=== PATIENT | male | born 1965 | race Two or more races ===

== ENCOUNTER 2021-06-10 17:59 | Emergency (ER) | payer MEDICAID ==
[~2021-06-10] VITALS: Ht 175.3 cm; Wt 72.7 kg
[2021-06-10 18:03] VITALS: BP 110/72
[2021-06-10 19:00] LABS: COVID AG,FIA SOURCE NASOPHARYNGEAL
== END 2021-06-10 18:53 | disposition home or self-care (01) ==
LOC: EMS 18:02
DX: R50.9 Fever, unspecified (principal); M79.10 Myalgia, unspecified site; R07.9 Chest pain, unspecified; Z20.822 Contact with and (suspected) exposure to COVID-19
CPT/HCPCS: 87426; 99283; C9803; U0003

== ENCOUNTER 2022-05-01 09:01 | Emergency (ER) | payer MEDICAID, OTHER ==
[~2022-05-01] VITALS: Ht 175.3 cm; Wt 79.0 kg
[2022-05-01] MEDS ORDERED: KETOROLAC TROMETHAMINE 30 MG/ML VIAL IM ONE (12:00)
[2022-05-01 14:31] LABS: APPEARANCE,URINE CLEAR (CLEAR); BILIRUBIN,URINE NEGATIVE (NEGATIVE); GLUCOSE, URINE (UA) NEGATIVE (NEGATIVE); KETONES,URINE NEGATIVE (NEGATIVE); LEUKOCYTE ESTERASE ,URINE NEGATIVE (NEGATIVE); NITRATE,URINE NEGATIVE (NEGATIVE); OCCULT BLOOD,URINE NEGATIVE (NEGATIVE); SPECIFIC GRAVITIY, URINE 1.021 (1.003-1.030); UROBILINOGEN,URINE <=1.0 mg/dL (<=1.0)
[2022-05-01 14:34] LABS: BACTERIA,URINE None Seen /HPF (None Seen); PROTEIN,URINE NEGATIVE (NEGATIVE); RBC,URINE None Seen /HPF (0-2); WBC,URINE None Seen /HPF (0-5)
[2022-05-01] MEDS ORDERED: LEVO-72 PO (15:24)
[2022-05-01] MEDS ORDERED: IBUP-2070 PO (15:24)
[2022-05-01] MEDS ORDERED: LIDOCAINE/PF 1% 2 ML VIAL IM ONE (15:30)
[2022-05-01] MEDS ORDERED: CefTRIAXone SODIUM 1 GM/VIAL IM ONE (15:30)
[2022-05-01 15:35] VITALS: BP 132/82
== END 2022-05-01 16:00 | disposition home or self-care (01) ==
LOC: EMS 09:03
DX: N45.1 Epididymitis (principal); Z87.438 Personal history of other diseases of male genital organs
CPT/HCPCS: 99284; 81001; 76870; 96372; J0696; J1885; J3490

== ENCOUNTER 2022-11-27 17:02 | Emergency (ER) | payer OTHER ==
[~2022-11-27] VITALS: Ht 170.2 cm; Wt 72.7 kg
[~2022-11-27 17:02] MED LIST: IBUP-2070 PO; LEVO-72 PO
[2022-11-27 17:05] VITALS: BP 119/78
== END 2022-11-27 18:00 | disposition left against medical advice (07) ==
LOC: EMS 17:14
DX: Z53.21 Procedure and treatment not carried out due to patient leaving prior to being seen by health care provider (principal)

== ENCOUNTER 2023-04-04 11:39 | Emergency (ER) | payer OTHER ==
[~2023-04-04] VITALS: Ht 175.3 cm; Wt 81.8 kg
[2023-04-04 11:44] VITALS: TEMP 97.7
[2023-04-04 12:23] LABS: BASOPHILS % (AUTO) 1.1 % (0.0-2.0); EOSINOPHILS % (AUTO) 2.7 % (1.0-6.0); HEMATOCRIT 49.4 % (41-53); HEMOGLOBIN 16.9 g/dL (13.5-17.5); LYMPHOCYTES # (AUTO) 1.7 K/uL (1.0-4.8); LYMPHOCYTES % (AUTO) 19.3 % (22.0-44.0); MEAN CORPUSCULAR HGB CONC 34.2 G/dL (31.0-37.0); MEAN CORPUSCULAR VOLUME 94 fL (80-100); MONOCYTES # (AUTO) 0.7 K/uL (0.1-1.0); MONOCYTES % (AUTO) 8.1 % (2.0-9.0); NEUTROPHILS # (AUTO) 6.1 K/uL (1.8-7.7); NEUTROPHILS % (AUTO) 68.8 % (40.0-70.0); PLATELET COUNT (AUTO) 239 K/uL (150-450); RED BLOOD CELL COUNT(AUTO) 5.28 MIL/uL (4.50-5.90); RED CELL DISTRIBUTION WIDTH 13.2 % (11.5-14.5)
[2023-04-04 12:33] LABS: ANION GAP 3 mmol/L (8-16); CALCIUM, TOTAL 9.1 mg/dL (8.8-10.5); CARBON DIOXIDE 32 mmol/L (22-29); CHLORIDE 106 mmol/L (98-107); CREATININE 1.14 mg/dL (0.60-1.30); GLOMERULAR FILTR. RATE CALC > 60 mL/min (>60); GLUCOSE,RANDOM 110 mg/dL (70-110); POTASSIUM 4.7 mmol/L (3.5-5.1); SODIUM SERUM 141 mmol/L (136-145)
[2023-04-04 12:44] LABS: B-TYPE NATRIURETIC PEPTIDE < 5 pg/mL (0-100)
[2023-04-04 13:01] LABS: ALANINE AMINOTRANSFERASE 21 U/L (12-78); ALBUMIN 3.4 g/dL (3.4-5.0); ALKALINE PHOSPHATASE 88 U/L (46-116); ASPARTATE AMINOTRANSFERASE 17 U/L (15-37); BILIRUBIN,TOTAL 0.7 mg/dL (0.1-1.0); CREATINE KINASE, TOTAL ONLY 92 U/L (39-308); TOTAL PROTEIN, SERUM 6.9 g/dL (6.4-8.2)
[2023-04-04 13:15] VITALS: BP 119/68; PULSE 65; RESP 18
== END 2023-04-04 14:08 | disposition home or self-care (01) ==
LOC: EMS 11:41
DX: R42 Dizziness and giddiness (principal); F15.90 Other stimulant use, unspecified, uncomplicated
CPT/HCPCS: 80053; 82550; 83880; 84484; 85025; 93005; 99284

== ENCOUNTER 2023-09-21 10:24 | Emergency (ER) | payer SELFPAY ==
[~2023-09-21] VITALS: Ht 175.3 cm; Wt 74.5 kg
[2023-09-21 10:53] VITALS: BP 107/70; PULSE 94; RESP 18
== END 2023-09-21 12:28 | disposition left against medical advice (07) ==
LOC: EMS 10:27
DX: N50.82 Scrotal pain (principal); F15.90 Other stimulant use, unspecified, uncomplicated
CPT/HCPCS: 99281; Z7502

== ENCOUNTER 2024-01-25 09:33 | Emergency (ER) | payer SELFPAY ==
[~2024-01-25] VITALS: Ht 175.3 cm; Wt 80.9 kg
[2024-01-25 09:36] VITALS: TEMP 98.1
[2024-01-25 10:28] LABS: BASOPHILS % (AUTO) 0.6 % (0.0-2.0); EOSINOPHILS % (AUTO) 1.9 % (1.0-6.0); HEMATOCRIT 53.2 % (41-53); HEMOGLOBIN 17.8 g/dL (13.5-17.5); LYMPHOCYTES # (AUTO) 2.1 K/uL (1.0-4.8); LYMPHOCYTES % (AUTO) 20.3 % (22.0-44.0); MEAN CORPUSCULAR HEMOGLOBIN 31.2 pg (26.0-34.0); MEAN CORPUSCULAR HGB CONC 33.4 G/dL (31.0-37.0); MEAN CORPUSCULAR VOLUME 93 fL (80-100); MONOCYTES # (AUTO) 0.7 K/uL (0.1-1.0); MONOCYTES % (AUTO) 7.1 % (2.0-9.0); NEUTROPHILS # (AUTO) 7.2 K/uL (1.8-7.7); NEUTROPHILS % (AUTO) 70.1 % (40.0-70.0); PLATELET COUNT (AUTO) 262 K/uL (150-450); WHITE BLOOD COUNT (AUTO) 10.2 K/uL (4.5-11.0)
[2024-01-25 10:40] LABS: CALCIUM, TOTAL 8.8 mg/dL (8.8-10.5); CREATININE 1.27 mg/dL (0.60-1.30); POTASSIUM 4.1 mmol/L (3.5-5.1)
[2024-01-25 10:42] LABS: ALBUMIN 3.2 g/dL (3.4-5.0); BILIRUBIN,TOTAL 0.5 mg/dL (0.1-1.0); TOTAL PROTEIN, SERUM 7.3 g/dL (6.4-8.2)
[2024-01-25] MEDS: DOXYCYCLINE HYCLATE 100 MG TABLET PO ONE (10:44)
[2024-01-25 11:50] VITALS: BP 121/78; PULSE 77; RESP 18
[2024-01-25] MEDS ORDERED: DOXY50 PO (11:56)
== END 2024-01-25 12:10 | disposition home or self-care (01) ==
LOC: EMS 09:35
DX: N45.1 Epididymitis (principal); N50.82 Scrotal pain
CPT/HCPCS: 76870; 80053; 85025; 99284